=== PATIENT | female | born 2000 | race Two or more races ===

== ENCOUNTER 2021-08-18 14:00 | Inpatient (IN) | payer OTHER ==
[~2021-08-18] VITALS: Ht 160 cm; Wt 74.8 kg
[2021-09-01] MEDS ORDERED: FERROUS SULFAT325 MG PO (07:54)
== END 2021-09-01 15:31 | disposition home or self-care (01) | DRG 807 ==
LOC: OB/GYN 08-29 14:00 → LDR 08-29 15:12 → OB/GYN 08-29 15:12
PROVIDERS: ADMIT Specialist; ATTEND Specialist
PROC: 10E0XZZ Delivery of Products of Conception, External Approach (ICD-10-PCS; principal; 2021-08-30)
PROC: 0W8NXZZ Division of Female Perineum, External Approach (ICD-10-PCS; 2021-08-30)
PROC: 4A1HXFZ Monitoring of Products of Conception, Cardiac Rhythm, External Approach (ICD-10-PCS; 2021-08-30)
DX: O48.0 Post-term pregnancy (principal); Z37.0 Single live birth; Z3A.40 40 weeks gestation of pregnancy

== ENCOUNTER 2024-06-26 13:15 | Inpatient (IN) | payer OTHER ==
[~2024-06-26] VITALS: Ht 162.6 cm; Wt 68.9 kg
[~2024-06-26 13:15] MED LIST: FERROUS SULFAT325 MG PO; ZOFRAN8 MG PO
[2024-06-30] MEDS ORDERED: OXYTOCIN 20 UNITS/500ML RL PIGGYBAG IV ONE (10:44)
[2024-06-30] MEDS ORDERED: OXYTOCIN 500 ML IV ONE (10:45)
[2024-06-30] MEDS ORDERED: RINGERS SOLUTION,LACTATED 1,000 ML IV SCH (10:45)
[2024-06-30] MEDS ORDERED: PRENATAL TABLE1 EAC1 PO (10:55)
[2024-06-30 11:17] LABS: URINE APPEARANCE Turbid; URINE BILIRRUBIN Negative (NEGATIVE); URINE BLOOD Large; URINE COLOR Yellow; URINE GLUCOSE Negative (NEGATIVE); URINE KETONE Negative (NEGATIVE); URINE LEUKOCYTE Negative; URINE NITRATE Negative; URINE UROBILINOGEN 0.2 E.U./dl
[2024-06-30 11:21] LABS: HEMATOCRIT 31.3 % (36.0-45.00); HEMOGLOBIN 10.3 g/dL (12.0-15.00); MEAN CELL VOLUME 75.7 fL (80.00-100.00); MEAN CORPUSCULAR HEMOGLOBIN 24.9 pg (27.00-32.0); MEAN CORPUSCULAR HGB CONC 32.8 g/dl (32.0-36.0); PLATELET COUNT 220 K/uL (150-450); RED BLOOD COUNT 4.13 M/uL (4.00-6.00); RED CELL DISTRIBUTION WIDTH 15.5 % (11.5-14.5); URINE CAST 10.84 uL (0.0-1.40); URINE EPITHELIAL CELLS 176.4 uL (0.0-38.8); URINE RBC 1165.9 uL (0.0-20.8); URINE WBC 105.7 uL (0.0-23.2)
[2024-06-30 11:35] LABS: URINE PROTEIN 100 (NEGATIVE)
[2024-06-30 11:48] LABS: INR < 0.93; PARTIAL THROMBOPLASTIN TIME 28.4 SECONDS (22.0-34.0); PROTHROMBIN TIME 9.8 SECONDS (9.0-11.5)
[2024-06-30 11:52] LABS: ALBUMIN 2.9 gm/dL (3.4-5.0); BILIRUBIN TOTAL 0.31 mg/dL (0.3-1.2); CALCIUM 8.9 mg/dL (8.5-10.1); CREATININE SERUM 0.48 mg/dL (0.55-1.02); GFR 160.27; GLOBULINA 3.6 G/DL (2.4-3.5); POTASSIUM 4.11 mEq/L (3.5-5.1); TOTAL PROTEIN 6.5 gm/dL (6.4-8.2)
[2024-06-30] MEDS ORDERED: LIDOCAINE HCL 1% 10ML VIAL ONE (15:18)
[2024-06-30] MEDS ORDERED: ERYTHROMYCIN BASE 1 GM TUBE OP ONE (15:18)
[2024-06-30] MEDS ORDERED: CHLORHEXIDINE GLUCONATE 120 ML BOTTLE TOP ONE ×2 (15:18→18:00)
[2024-06-30] MEDS ORDERED: OXYTOCIN 20 UNITS/1000ML RL PIGGYBAG IV ONE (15:18)
[2024-06-30] MEDS ORDERED: PROMETHAZINE HCL 25 MG/ML AMPUL ONE (15:20)
[2024-06-30] MEDS ORDERED: PROMETHAZINE HCL 25 MG/ML AMPUL IV STA (15:23)
[2024-06-30] MEDS ORDERED: MEPERIDINE HCL/PF 50 MG/ML VIAL IV STA (15:23)
[2024-06-30] MEDS ORDERED: ERYTHROMYCIN BASE 1 GM TUBE OP NR (18:00)
[2024-06-30] MEDS ORDERED: LIDOCAINE HCL 1% 2ML VIAL IJ ONE (18:00)
[2024-06-30] MEDS ORDERED: ACETAMINOPHEN 325 MG TABLET PO PRN (18:00)
[2024-06-30] MEDS ORDERED: OxyCODONE HCL/APAP UD (PERCOCET) PO PRN (18:00)
[2024-06-30] MEDS ORDERED: OXYTOCIN 20 UNITS/1000ML RL PIGGYBAG IV NR (18:00)
[2024-07-01] MEDS ORDERED: HYDROCORTISONE 2.5% 30 GM TUBE RECTAL SCH (09:00)
[2024-07-01] MEDS ORDERED: BENZOCAINE/MENTHOL 90 ML BOTTLE TOP SCH (09:00)
== END 2024-07-02 14:50 | disposition home or self-care (01) | DRG 807 ==
LOC: LDR 06-30 10:10 → OB/GYN 06-30 18:59
PROVIDERS: ADMIT Specialist; ATTEND Specialist
PROC: 10E0XZZ Delivery of Products of Conception, External Approach (ICD-10-PCS; principal; 2024-06-30)
PROC: 0HQ9XZZ Repair Perineum Skin, External Approach (ICD-10-PCS; 2024-06-30)
PROC: 4A1HXCZ Monitoring of Products of Conception, Cardiac Rate, External Approach (ICD-10-PCS; 2024-06-30)
DX: O70.1 Second degree perineal laceration during delivery (principal); Z37.0 Single live birth; Z3A.39 39 weeks gestation of pregnancy; Z20.822 Contact with and (suspected) exposure to COVID-19